=== PATIENT | female | born 1985 | race Hispanic/Latino ===

== ENCOUNTER 2018-09-27 06:34 | Day surgery (SDC) | payer OTHER ==
[2018-09-27] MEDS: CYCLOPENTOLATE 2% OPTH 2 ML ONE ×3 (07:05→07:36)
[2018-09-27] MEDS: PHENYLEPHRINE 10% OPTH 5ML ONE ×3 (07:05→07:36)
[2018-09-27] MEDS: KETOROLAC OPTHALMIC 5 ML BOT ONE ×3 (07:05→07:36)
[2018-09-27] MEDS: MOXIFLOXACIN HCL 0.5% 3ML OPTH OPTH ONE ×3 (07:05→07:36)
[2018-09-27] MEDS: TROPICAMIDE 1% OPTH 3 ML BOT ONE ×3 (07:05→07:36)
[2018-09-27] MEDS ORDERED: Ringers Lactate 1,000 ML IV ONE (07:19)
[2018-09-27] MEDS ORDERED: OPTHALMIC OPTH ONE (07:27)
[2018-09-27] MEDS ORDERED: TISSEEL VH 2 MG KIT TOP ONE (07:27)
[2018-09-27] MEDS ORDERED: MITOMYCIN OPTH ONE (07:27)
[2018-09-27] MEDS ORDERED: PROPOFOL 200 MG/20 ML VIAL IV ONE (07:28)
[2018-09-27] MEDS ORDERED: FENTANYL CITR 100 MCG/2 ML ONE ×2 (07:29→08:31)
[2018-09-27] MEDS ORDERED: LIDOCAINE 2% MPF 5 ML VIAL ONE (07:29)
[2018-09-27] MEDS ORDERED: MIDAZOLAM HCL 2 MG/2 ML INJ ONE (07:29)
[2018-09-27] MEDS ORDERED: ONDANSETRON HCL 40 MG/20 ML VIAL ONE (07:30)
[2018-09-27] MEDS ORDERED: BSS OPTHALMIC SOL 15 ML BOT OPTH ONE (07:48)
[2018-09-27] MEDS ORDERED: TOBRADEX 0.3-0.1% OPTH OINTMENT ONE (07:48)
[2018-09-27] MEDS ORDERED: POVIDONE-IODINE 5% EYE DROPS ONE (07:48)
[2018-09-27] MEDS ORDERED: DEXAMETHASONE 10 MG/ML VIAL ONE (08:11)
[2018-09-27] MEDS ORDERED: ACETAMINOPHEN 325 MG TABLET ONE (11:01)
--- NOTE | 2018-09-27 21:04 | OP ---
Date of Procedure: 09/27/2018 Surgeon: Justice Cintron MD Preoperative Diagnosis: Recurrent pterygium nasally, right eye. Postoperative Diagnosis: Recurrent pterygium nasally, right eye. Same. Procedure Performed: Excision of recurrent pterygium, right eye and with placement of scleral patch graft nasally and placement of amniotic membrane tissue using Tisseel glue. Description Of Procedure: After being properly identified in preoperative holding area, the patient was taken back to the operating room where a time-out was performed. Examination with the operating microscope revealed a large recurrent pterygium on the nasal aspect of the right eye. This pterygium had regrown despite previous excision x2 as well as 1 dose of radiation that was discontinued second liu to scleral thinning. The pterygium was dissected off the cornea and was found to be extremely de nse and fibrous in nature consistent with scar tissue and extreme attention was taken in order to sudhir id the medial rectus. Using a muscle hook, the medial rectus was identified and sculpted free from t he scar tissue and excellent visualization of the medial rectus was obtained and maintained throughou t the procedure with it being kept on a muscle hook. The remainder of the pterygium was dissected fr ee down to bare sclerae several millimeters posterior to the insertion of the medial rectus and using a #57 Rush blade, the cornea was scraped as well as the area of sclera anterior to the muscle inse rtion. Once all the pterygium had been removed, the remaining sclera anterior to the muscle insertio n and lateral to the limbus was extremely thin with visualization of the uvea. Because of this, desp ite the preoperative plan of a light application of mitomycin-C, I did not even feel this was appropr iate as the patient was extreme risk of further scleral thinning and melt. We did have in the operat ing room a preserved human sclera which was added as a patch. A 7.7 mm patch was cut in half with th e one side tapered facing the cornea in order to reduce the chance of a dellen and then this was then sewn into place over the thin sclera adjacent to the true limbus. Once this had been secured, the a mniotic membrane tissue was removed from its packaging and trimmed to fit the space required and then Tisseel glue was applied first to the scleral bed. Light cautery had been applied to in order to ac hieve complete hemostasis and then to the amniotic tissue surface. This was then draped into positio n and milked in order to remove any excess fluid as well of any air bubble and then the remainder of the Tisseel glue was applied over the superior aspect in order to create a good fibrin shelf. Once t his was allowed to dry, the lid speculum was removed and the procedure concluded. The scleral patch graft was held into place with 10-0 nylon sutures x4 for each half and the eye pressure patched over TobraDex ointment. The patient was taken to the postoperative holding area in stable condition miguel baptiste tolerated the procedure well. There were no complications. Of note was the scleral thinning as no deepti above and the reservation of the mitomycin-C for fear of further complications. The patient will follow with myself, Dr. Justice Cintron at the [facility] tomorrow morning. We did sen d the pterygium specimen to pathology for further testing and identification, but there were no compl ications. Estimated Blood Loss: Less than 5 mL. KOSTAS/JONHL Voice ID: [id number] Report ID: [id number]
== END 2018-09-27 11:30 | disposition home or self-care (01) ==
LOC: OR 06:34
PROVIDERS: ATTEND Ophthalmology
PROC: 08R8XKZ Replacement of Right Cornea with Nonautologous Tissue Substitute, External Approach (ICD-10-PCS; principal; 2018-09-27 07:30)
DX: H11.061 Recurrent pterygium of right eye (principal); H15.89 Other disorders of sclera
CPT/HCPCS: 81025; 88304; 88305; J1100; J2250; J2405; J2704; J3010; J7315